=== PATIENT | female | born 1935 | race Caucasian/White ===

== ENCOUNTER 2021-04-13 20:26 | Inpatient (IN) | payer MEDICARE, OTHER ==
[~2021-04-13] VITALS: Ht 170.2 cm; Wt 52.2 kg
[2021-04-13 20:53] LABS: BASOPHILS % 0.4 % (0.0-1.0); EOSINOPHILS # (AUTO) 0.3 (0.0-0.4); EOSINOPHILS % 2.3 % (0.0-6.0); HEMATOCRIT 35.4 % (34.2-44.1); HEMOGLOBIN 11.2 g/dL (12.0-16.0); LYMPHOCYTES % 26.7 % (18.0-39.1); MEAN CORPUSCULAR HEMOGLOBIN 28.4 pg (28-32); MEAN CORPUSCULAR HGB CONC 31.6 g/dL (31-35); MEAN CORPUSCULAR VOLUME 89.6 fL (81-99); MONOCYTES # (AUTO) 0.9 (0.2-0.8); MONOCYTES % 8.4 % (4.4-11.3); NEUTROPHILS # (AUTO) 6.8 (2.1-6.9); NEUTROPHILS % 61.6 % (38.7-80.0); PLATELET COUNT 376 x10e3/uL (140-360); RED BLOOD COUNT 3.95 x10e6/uL (3.6-5.1); RED CELL DISTRIBUTION WIDTH 12.3 % (11.7-14.4)
[2021-04-13 20:56] LABS: CLARITY,URINE HAZY (CLEAR); COLOR,URINE YELLOW (YELLOW); KETONES,URINE NEGATIVE (NEGATIVE); LEUKOCYTE ESTERASE ,URINE LARGE (NEGATIVE); NITRITE,URINE NEGATIVE (NEGATIVE); PROTEIN,URINE DIPSTICK 1+ (NEGATIVE); URINE UROBILINOGEN 0.2 mg/dL (0.2 - 1)
[2021-04-13 21:08] LABS: BACTERIA,URINE MODERATE /HPF; EPITHELIAL CELLS,URINE FEW /LPF; RENAL EPITHELIAL CELLS,URINE RARE; WBC,URINE (MAN) >50 /HPF (0-5)
[2021-04-13 21:10] LABS: ALBUMIN 2.8 g/dL (3.5-5.0); ALBUMIN/GLOBULIN RATIO 0.5 (0.8-2.0); ANION GAP 15.1 mmol/L (8-16); CREATININE, SERUM 2.35 mg/dL (0.57-1.11); POTASSIUM 4.1 mmol/L (3.5-5.1)
[2021-04-13] MEDS ORDERED: ONDANSETRON HCL INJ 2MG/ML 2ML 2 MG/ML VIAL IV PRN (21:45)
[2021-04-13] MEDS ORDERED: CEFTRIAXONE 1 GM VIAL IV SCH (21:45)
[2021-04-13] MEDS: CEFTRIAXONE 1 GM in SODIUM CHLORIDE 0.9% 50ML 50 ML IV SCH (22:08)
[2021-04-13] MEDS: SODIUM CHLORIDE 0.9% 1000ML 1,000 ML IV SCH (22:09)
[2021-04-13] MEDS: ACETAMINOPHEN 325 MG TAB PO PRN (22:09)
[2021-04-14] VITALS (11 sets, daily range): BP systolic 113–152; BP diastolic 64–75
[2021-04-14] MEDS ORDERED: ACETAMINOPHEN325 M1 PO (01:15)
[2021-04-14] MEDS ORDERED: AMLODIPINE BESYL5 MG PO (01:15)
[2021-04-14] MEDS ORDERED: PANTOPRAZOLE SO40 MG PO (01:18)
[2021-04-14] MEDS ORDERED: FERROUS FUMARA324 MG PO (01:18)
[2021-04-14] MEDS ORDERED: ASPIRIN325 MG PO (01:18)
[2021-04-14] MEDS ORDERED: DOCUSATE SODIU100 MG PO (01:18)
[2021-04-14] MEDS ORDERED: PRAVACHOL40 MG PO (01:18)
[2021-04-14] MEDS ORDERED: METOPROLOL TART25 MG PO (01:18)
[2021-04-14 04:55] LABS: BASOPHILS % 0.5 % (0.0-1.0); EOSINOPHILS # (AUTO) 0.2 (0.0-0.4); EOSINOPHILS % 3.1 % (0.0-6.0); HEMATOCRIT 29.8 % (34.2-44.1); HEMOGLOBIN 9.4 g/dL (12.0-16.0); LYMPHOCYTES # (AUTO) 1.9 (1.0-3.2); LYMPHOCYTES % 25.9 % (18.0-39.1); MEAN CORPUSCULAR HGB CONC 31.5 g/dL (31-35); MEAN CORPUSCULAR VOLUME 88.7 fL (81-99); MONOCYTES # (AUTO) 0.8 (0.2-0.8); MONOCYTES % 11.3 % (4.4-11.3); NEUTROPHILS # (AUTO) 4.3 (2.1-6.9); NEUTROPHILS % 58.8 % (38.7-80.0); PLATELET COUNT 323 x10e3/uL (140-360); RED BLOOD COUNT 3.36 x10e6/uL (3.6-5.1); RED CELL DISTRIBUTION WIDTH 12.3 % (11.7-14.4)
[2021-04-14 05:24] LABS: ALBUMIN 2.2 g/dL (3.5-5.0); ALBUMIN/GLOBULIN RATIO 0.5 (0.8-2.0); ANION GAP 12.8 mmol/L (8-16); CALCIUM 8.5 mg/dL (8.4-10.2); CREATININE, SERUM 2.03 mg/dL (0.57-1.11); POTASSIUM 3.8 mmol/L (3.5-5.1)
[2021-04-14] MEDS: SODIUM CHLORIDE 0.9% 1000ML 1,000 ML IV SCH ×3 (08:04→21:45)
[2021-04-14] MEDS ORDERED: HYDRALAZINE HCL 20 MG/ML VIAL IV PRN (09:15)
[2021-04-14] MEDS ORDERED: POLYETHYLENE GLYCOL 3350 17 GM PACK PO PRN (09:15)
[2021-04-14] MEDS ORDERED: TEMAZEPAM 15 MG CAP PO PRN (09:15)
[2021-04-14] MEDS: DOCUSATE SODIUM 100 MG CAP PO SCH (16:47)
[2021-04-14] MEDS: FAMOTIDINE 20 MG TAB PO SCH (16:47)
[2021-04-14] MEDS: CEFTRIAXONE 1 GM in SODIUM CHLORIDE 0.9% 50ML 50 ML IV SCH (22:52)
[2021-04-15] VITALS (7 sets, daily range): BP systolic 102–140; BP diastolic 53–68
[2021-04-15 04:59] LABS: BASOPHILS # (AUTO) 0.1 (0.0-0.1); BASOPHILS % 0.7 % (0.0-1.0); EOSINOPHILS # (AUTO) 0.2 (0.0-0.4); HEMATOCRIT 31.2 % (34.2-44.1); HEMOGLOBIN 9.7 g/dL (12.0-16.0); LYMPHOCYTES # (AUTO) 2.4 (1.0-3.2); LYMPHOCYTES % 33.3 % (18.0-39.1); MEAN CORPUSCULAR HGB CONC 31.1 g/dL (31-35); MEAN CORPUSCULAR VOLUME 89.9 fL (81-99); MONOCYTES # (AUTO) 0.6 (0.2-0.8); MONOCYTES % 8.8 % (4.4-11.3); NEUTROPHILS # (AUTO) 3.9 (2.1-6.9); NEUTROPHILS % 53.8 % (38.7-80.0); PLATELET COUNT 315 x10e3/uL (140-360); RED BLOOD COUNT 3.47 x10e6/uL (3.6-5.1); RED CELL DISTRIBUTION WIDTH 12.5 % (11.7-14.4)
[2021-04-15 05:20] LABS: ALBUMIN 2.3 g/dL (3.5-5.0); ALBUMIN/GLOBULIN RATIO 0.5 (0.8-2.0); ANION GAP 15.1 mmol/L (8-16); CALCIUM 8.4 mg/dL (8.4-10.2); CHOL/HDL RATIO 4.1 (3.0-3.6); CREATININE, SERUM 1.77 mg/dL (0.57-1.11); MAGNESIUM 1.9 MG/DL (1.3-2.1); PHOSPHORUS 3.5 MG/DL (2.3-4.7); POTASSIUM 4.1 mmol/L (3.5-5.1)
[2021-04-15 05:45] LABS: THYROID STIMULATING HORMONE 1.245 uIU/mL (0.350-4.940)
[2021-04-15] MEDS: AMLODIPINE BESYLATE 5 MG TAB PO SCH (05:55)
[2021-04-15] MEDS: SODIUM CHLORIDE 0.9% 1000ML 1,000 ML IV SCH ×2 (06:15→11:10)
[2021-04-15] MEDS: PANTOPRAZOLE SOD 40 MG TABEC PO SCH (08:13)
[2021-04-15] MEDS: DOCUSATE SODIUM 100 MG CAP PO SCH ×2 (08:13→16:33)
[2021-04-15] MEDS: ASPIRIN 325 MG TAB PO SCH (08:13)
[2021-04-15] MEDS: FAMOTIDINE 20 MG TAB PO SCH ×2 (08:13→16:33)
[2021-04-15] MEDS: METOPROLOL TARTRATE 25 MG TAB PO SCH ×2 (08:14→16:33)
[2021-04-15] MEDS ORDERED: ENOXAPARIN SODIUM INJ 100 MG/ML SYR SC SCH (09:00)
[2021-04-15] MEDS ORDERED: ONDANSETRON HCL 4 MG ORAL DISINTEGRATING TAB PO PRN (13:00)
[2021-04-15] MEDS ORDERED: PRAVASTATIN 20 MG TAB PO SCH (21:00)
[2021-04-15] MEDS ORDERED: DOCUSATE SODIUM 100 MG CAP PO SCH (21:00)
[2021-04-15] MEDS: CEFTRIAXONE 1 GM in SODIUM CHLORIDE 0.9% 50ML 50 ML IV SCH (22:34)
[2021-04-16] VITALS: BP 124/62
[2021-04-16 04:00] VITALS: BP 140/71
[2021-04-16 05:27] LABS: BASOPHILS # (AUTO) 0.1 (0.0-0.1); BASOPHILS % 0.7 % (0.0-1.0); EOSINOPHILS # (AUTO) 0.2 (0.0-0.4); EOSINOPHILS % 3.5 % (0.0-6.0); HEMATOCRIT 31.6 % (34.2-44.1); HEMOGLOBIN 9.9 g/dL (12.0-16.0); LYMPHOCYTES # (AUTO) 2.3 (1.0-3.2); LYMPHOCYTES % 34.1 % (18.0-39.1); MEAN CORPUSCULAR HEMOGLOBIN 27.9 pg (28-32); MEAN CORPUSCULAR HGB CONC 31.3 g/dL (31-35); MONOCYTES # (AUTO) 0.6 (0.2-0.8); MONOCYTES % 9.2 % (4.4-11.3); NEUTROPHILS # (AUTO) 3.6 (2.1-6.9); NEUTROPHILS % 52.2 % (38.7-80.0); PLATELET COUNT 343 x10e3/uL (140-360); RED BLOOD COUNT 3.55 x10e6/uL (3.6-5.1); RED CELL DISTRIBUTION WIDTH 12.3 % (11.7-14.4)
[2021-04-16 05:46] LABS: CALCIUM 8.4 mg/dL (8.4-10.2); CREATININE, SERUM 1.69 mg/dL (0.57-1.11)
[2021-04-16] MEDS: AMLODIPINE BESYLATE 5 MG TAB PO SCH (05:54)
[2021-04-16] MEDS: ACETAMINOPHEN 325 MG TAB PO PRN (05:55)
[2021-04-16 07:42] VITALS: BP 129/63
[2021-04-16 08:12] VITALS: BP 129/63
[2021-04-16] MEDS: METOPROLOL TARTRATE 25 MG TAB PO SCH ×2 (10:30→16:41)
[2021-04-16] MEDS: FAMOTIDINE 20 MG TAB PO SCH ×2 (10:30→16:30)
[2021-04-16] MEDS: PANTOPRAZOLE SOD 40 MG TABEC PO SCH (10:30)
[2021-04-16] MEDS: DOCUSATE SODIUM 100 MG CAP PO SCH ×2 (10:30→16:41)
[2021-04-16] MEDS: ASPIRIN 325 MG TAB PO SCH (10:30)
[2021-04-16 12:10] VITALS: BP 123/60
== END 2021-04-16 16:52 | DRG 871 ==
LOC: ER 20:29 → ERHOLD 21:43 → MED/SURG 23:34 → OBSVTOIN 04-15 11:07
PROVIDERS: ADMIT Internal Medicine; ATTEND Internal Medicine
DX: A41.9 Sepsis, unspecified organism (principal); G93.41 Metabolic encephalopathy; N17.9 Acute kidney failure, unspecified; N39.0 Urinary tract infection, site not specified; F03.90 Unspecified dementia, unspecified severity, without behavioral disturbance, psychotic disturbance, mood disturbance, and anxiety; I12.9 Hypertensive chronic kidney disease with stage 1 through stage 4 chronic kidney disease, or unspecified chronic kidney disease; N18.30 Chronic kidney disease, stage 3 unspecified; I25.10 Atherosclerotic heart disease of native coronary artery without angina pectoris; E78.5 Hyperlipidemia, unspecified; Z88.5 Allergy status to narcotic agent; Z88.0 Allergy status to penicillin; D64.9 Anemia, unspecified; K57.30 Diverticulosis of large intestine without perforation or abscess without bleeding; K44.9 Diaphragmatic hernia without obstruction or gangrene; Z20.822 Contact with and (suspected) exposure to COVID-19; Z86.73 Personal history of transient ischemic attack (TIA), and cerebral infarction without residual deficits; K21.9 Gastro-esophageal reflux disease without esophagitis
CPT/HCPCS: 36415; 51701; 80048; 80053; 80061; 81001; 83036; 83735; 84100; 84443; 85025; 87086; 99251; 99284; G0378; J0696; J2405; J7030; U0002